=== PATIENT | female | born 1960 | race Caucasian/White ===

== ENCOUNTER → 2016-08-18 | Outpatient (CLI) | payer BC ==
[~2016-08-18] VITALS: Ht 162.6 cm; Wt 88.5 kg
[~2016-08-18] MED LIST: ASPIRIN325 PO; LEXAPRO20 MG PO; LIPITOR80 MG PO; TOPROL XL25 MG PO; TRAVATAN Z2.5 ML OPHTHALMIC; UNICOMPLEX M TA1 TA1 PO; VITAMIN D 5050000 I1 PO
--- NOTE | ~2016-08-18 | HPC ---
[facility] [address] [place] [address] PAIN MANAGEMENT CONSULTATION Name: DIPTI TOWNSEND Room #: REG NGOC Martinez.#: [id number] Admission: 08/18/16 Attend Phys: Balwinder Regalado MD Discharge: Date of : 56 Report #: [id number] THIS REPORT FOR: //name// CC: BLANE Regalado DATE OF SERVICE: 08/18/2016 DATE OF SERVICE: 08/18/2016 CHIEF COMPLAINT: Mid back pain and chest pain. Recent onset of pain in each hand without radiation. I am seeing the patient today at the request of Ivy Ochoa at [facility]. She is here today for chronic pain. We discussed all of her issues today. Her primary complaint was mid back pain and chest pain. Her chest pain began shortly after open heart surgery. She had bypass in 2006 and had post sternotomy pain. She continues to have it to this day. She had numerous treatments for that including removal of her sternal wires. Injections are at [facility], acupuncture, chiropractic treatments and took hydrocodone for some time. None of it completely resolved her pain and she is quite emotional about it. She cried during office visits discussing her frustration and anger at the fact that she deals with chronic pain related to her sternotomy. Her second pain is in her mid back. It is not typical, most low back pain and in that it is not lumbosacral. His mid thoracic about the lower thoracic region extends down to about L4 spinous process at the iliac crest. It is midline central and does not radiate in a radicular pattern. It is worse with back extension, although range of motion is pretty good. She does not regularly do back exercises other than some stretching and walking. The pain is in her hands. She describes it as gnawing, burning sensation. It does not follow a dermatomal distribution and does not radiate and involve the entire hands with the sensation of swelling and stiffness. CURRENT MEDICATIONS: Metoprolol, aspirin, Lipitor, Travatan drops to the eyes, Lexapro, multivitamins, vitamin D. ALLERGIES: None. PAST MEDICAL HISTORY: Significant for coronary artery disease with bypass in 2006, followed by post sternotomy pain syndrome. She had her gallbladder removed in 2005. She denies any other medical condition other than the hypertension and cardiac disease. 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 She denies use of tobacco or alcohol. She is . Impacted pain scores are highest for mood is 6/10 and work 6/10 interference. REVIEW OF SYSTEMS: Completed by the patient describes blurred vision, cardiac issues as described, peptic ulcer disease, nocturia, nervousness and depression. PHYSICAL EXAMINATION: GENERAL: She is a pleasant female at times laughing and at other times tearful about her sternotomy pain. She is able to easily move from sitting to standing position, ambulates without antalgic features and there is no evidence of weakness to her gait. She is stable. VITAL SIGNS: Blood pressure 118/56, heart rate 71. BMI is 33.5. CHEST: Clear. CARDIAC: Cardiac rhythm is regular. ABDOMEN: Soft. There is no palpable mass or bruit. SPINE: Examination of the spine reveals normal alignment with good range of motion in all planes, flexion, extension, rotation, and [id number] tilt. There is no mass palpable. There is mild tenderness over the spinous processes. No muscle spasm is appreciated. No pain in the legs at all with straight leg raising. Sensation and strength are normal. Deep tendon reflexes are 2+ at knee and trace at the ankle. IMPRESSION: 1. Mid back pain axial, possibly spondylitic in nature. There is not much muscle spasm there. Alignment and changes in the facet joints can be assessed with the plain film x-rays, which were ordered. 2. Post sternotomy syndrome. She may benefit from Lidoderm patches. These can be also purchased [id number] at 4% and can be used at night. 3. Recent onset of pain in both hands. Possibilities include neuropathic pain versus carpal tunnel. We discussed the use of medication management a bit. She does have a history of some addiction and dependence to recreational drugs over 2 decades ago, which she has completely eliminated after attending . There is also strong family history of alcohol as an addiction, so using opioids or other drugs to treat her chronic pain, something we would needed do cautiously. She may be a candidate for injections of the spine. I would consider both facet injections, then perhaps lumbar epidural injection given the broad nature of her pain as a trial of therapy for her mid back pain. We could reinitiate injections of the sternum as well, although I think it has been long enough that it would be unlikely to help. Followup visit planned after regular x-rays. <ELECTRONICALLY SIGNED> By: Balwinder Regalado MD 08/18/16 1714 [id number] Balwinder Regalado MD /nt
[2016-08-18 09:07] VITALS: BP 118/56
== END ==
LOC: PAIN 07-28 14:33
DX: M54.9 Dorsalgia, unspecified (principal); M79.642 Pain in left hand; M79.641 Pain in right hand; I25.10 Atherosclerotic heart disease of native coronary artery without angina pectoris

== ENCOUNTER → 2016-09-19 | Outpatient (CLI) | payer BC ==
[~2016-09-19] VITALS: Ht 162.6 cm; Wt 88.9 kg
[~2016-09-19] MED LIST changes: +FLEXERIL PO; +HYDROCODONE-AP1 EAC6 PO
[2016-09-19 10:02] VITALS: BP 140/77
== END | disposition home or self-care (01) ==
LOC: PAIN 09-05 15:12
DX: M41.84 Other forms of scoliosis, thoracic region (principal); M41.86 Other forms of scoliosis, lumbar region; Z87.891 Personal history of nicotine dependence